=== PATIENT | female | born 1940 | race Caucasian/White ===

== ENCOUNTER → 2016-08-26 | Outpatient (CLI) | payer MEDICARE, OTHER ==
[~2016-08-26] MED LIST: ASPI-557 PO; BUSP5TAB3 PO; CALC-825 PO; CLON0.1T PO; CRAN200C4 PO; GLUC1CAP39 PO; IRBE300T19 PO; LABE100T19 PO; OMEG-76 PO; OMEP20CA10 PO; SERT50TA12 PO; SUCR1TAB PO
== END ==
LOC: WC.BC 13:14
DX: Z12.31 Encounter for screening mammogram for malignant neoplasm of breast (principal)
CPT/HCPCS: 77063; G0202